=== PATIENT | female | born 1970 | race Caucasian/White ===

== ENCOUNTER 2016-12-28 06:12 | Inpatient (IN) | payer OTHER ==
[~2016-12-28 06:12] MED LIST: Buffered Lidocaine 0.9% SYRIN* 5 ML/SYR SYRINGE INTRADERM ONE; Sodium Citrate/Citric Acid* 15 ML UDC PO ONE
[2016-12-28] MEDS ORDERED: Sodium Citrate/Citric Acid* 15 ML UDC ONE (06:26)
[2016-12-28] MEDS ORDERED: Heparin VIAL(*) 5000 UNITS/ML VIAL (FIVE THOUSAND) ONE (06:26)
[2016-12-28] MEDS ORDERED: Ciprofloxacin 400MG IVPREMIX(* 400 MG/200 ML BAG ONE (06:27)
[2016-12-28] MEDS ORDERED: Clindamycin 900 MG IVPREMIX(* 900 MG/50 ML SDV IV ONE (06:27)
[2016-12-28] MEDS ORDERED: Buffered Lidocaine 0.9% SYRIN* 5 ML/SYR SYRINGE ONE (06:31)
[2016-12-28] MEDS ORDERED: Bupivacaine 0.5% SDV PF* 30 ML VIAL ONE (07:16)
[2016-12-28] MEDS ORDERED: Propofol* 10 MG/ML 20 ML BTL IV PUSH ONE (07:29)
[2016-12-28] MEDS ORDERED: Lidocaine 2% PF * 5 ML VIAL ONE (07:29)
[2016-12-28] MEDS ORDERED: fentaNYL* 50 MCG/ML 2 ML VIAL (100 MCG VIAL) ONE ×2 (07:29→09:58)
[2016-12-28] MEDS ORDERED: Rocuronium* 10 MG/ML VIAL ONE (07:30)
[2016-12-28] MEDS ORDERED: EPHEDrine (Pressors)* 50 MG/ML VIAL ONE (07:31)
[2016-12-28] MEDS ORDERED: DiMENhydriNATE IV* 50 MG/ML VIAL IV PUSH PRN (07:39)
[2016-12-28] MEDS ORDERED: Ondansetron INJ* 2 MG/ML VIAL ONE (09:07)
[2016-12-28] MEDS ORDERED: Ketorolac INJ* 30 MG/ML 1 ML VIAL ONE (09:07)
[2016-12-28] MEDS ORDERED: Dexamethasone IV* 4 MG/ML 1 ML (4 MG) ONE (09:07)
[2016-12-28] MEDS ORDERED: Glycopyrrolate IV* 0.2 MG/ML 1 ML VIAL ONE (09:09)
[2016-12-28] MEDS ORDERED: Neostigmine Methylsulfate* 2 MG/2 ML SYRINGE ONE (09:09)
[2016-12-28] MEDS ORDERED: diPHENhydraMINE IV* 50 MG/ML 1 ml VIAL (BENADRYL) SLOW PUSH PRN (09:44)
[2016-12-28] MEDS ORDERED: Acetaminophen ADULT LIQ* 650 MG/20.3 ML UDC PO PRN (09:44)
[2016-12-28] MEDS ORDERED: HYDROmorphone INJ* 1 MG/ML CARPUJECT SYRINGE IV PRN (09:44)
[2016-12-28] MEDS ORDERED: Ondansetron INJ* 2 MG/ML VIAL IV PRN (09:44)
--- NOTE | 2016-12-28 09:44 | PN ---
Progress Note - Progress Note Date of Service: 12/28/16 Note: Brief Operative Note: Preop and Postop Dx: Morbid obesity Procedure: Laparoscopic sleeve gastectomy Anesthesia: GET Surgeon: Aristeo Asst: LEXA Jackson EBL: 100 ml Fluids: 1600 ml RL Drains: none Specimen: stomach Findings: dictated
[2016-12-28] MEDS ORDERED: DiMENhydriNATE IV* 50 MG/ML VIAL ONE (09:58)
[2016-12-28] MEDS: fentaNYL* 50 MCG/ML 2 ML VIAL (100 MCG VIAL) IV PRN ×2 (09:59→10:22)
[2016-12-28] MEDS: HYDROmorphone INJ* 1 MG/ML CARPUJECT SYRINGE IV PRN ×2 (11:45→16:57)
[2016-12-28] MEDS: Famotidine IV* 10 MG/ML 2 ML (20 mg) IV SCH (11:46)
[2016-12-28] MEDS: Ketorolac INJ* 30 MG/ML 1 ML VIAL IV PRN ×2 (13:59→22:15)
[2016-12-29] MEDS: Famotidine IV* 10 MG/ML 2 ML (20 mg) IV SCH ×3 (00:06→23:43)
[2016-12-29] MEDS: HYDROmorphone INJ* 1 MG/ML CARPUJECT SYRINGE IV PRN (03:56)
--- NOTE | 2016-12-29 06:38 | OP ---
CC: Roseann Rojas MD * DATE OF OPERATION: 12/28/16 - ROOM #353 DATE OF : 74 SURGEON: Pietro Alberts MD ELECTRONIC PREPRESS SYSTEM OPERATOR: LEXA Vogt ANESTHESIOLOGIST: Kvng Hall DO ANESTHESIA: General endotracheal. PRE-OP DIAGNOSIS: Morbid obesity. POST-OP DIAGNOSIS: Morbid obesity. OPERATIVE PROCEDURE: Laparoscopic sleeve gastrectomy. ESTIMATED BLOOD LOSS: 10 mL. IV FLUIDS: 1.6 L crystalloids. SPECIMEN: Portion of the stomach. DRAINS: None. COMPLICATIONS: None. COUNTS: Instrument, needle, and sponge counts were correct. DESCRIPTION OF PROCEDURE: The patient was brought to the operating room and placed on the table supine. Sequential compression devices were placed on both lower extremities and general anesthesia was administered. The patient was positioned and padded appropriately and administered appropriate intravenous antibiotics and then prepped and draped in usual sterile fashion. Time-out was performed. Local anesthetic was infiltrated into the skin and soft tissue prior to making each incision. Entry into the abdomen was through a left upper quadrant incision accommodating a 5-mm optical trocar. I was unable to obtain pneumoperitoneum, and rather than persist with this, the decision was made to use a Veress needle through a transumbilical approach, and pneumoperitoneum was achieved with this method to a pressure of 15 mmHg. Then, the 5-mm port was placed into the left upper quadrant and inspection to the underlying viscera revealed that there was a through-and- through injury to the transverse colon mesentery. The area was inspected after placing additional 12-mm trocars, one in the supraumbilical region, one in the right upper quadrant, and a 5-mm trocar in the left upper quadrant laterally. The transverse colon was retracted superiorly and there appeared to be no injury to the retroperitoneum. At this point, a Ciro liver retractor was placed percutaneously in the subxiphoid position and used to elevate the left lobe of the liver and the gastric anatomy was inspected and normal. The lesser curvature was measured 6 cm from the pylorus and at this point skeletonized with the LigaSure device, completely dividing the short gastric vessels up to the gastroesophageal junction and dividing lesser sac adhesions. After fully mobilizing the stomach , a sleeve gastrectomy was performed over a 40-Cam[place] bougie with sequential firings of the EndoGIA stapler with purple reinforced staple cartridges. The specimen was retrieved through the right upper quadrant incision. There was some bleeding noted from the cut edge of the omentum which was controlled with endoscopic clip placement. Irrigation was performed until clear. Ports removed under direct visualization, carbon dioxide was released. Ciro liver retractor had been removed as well and then the incisions were closed with the stapler. Dressings applied. The patient tolerated the procedure well. The patient was extubated and transferred to Recovery in stable condition. [id number]/[facility] #: [id number] [facility] O[facility] MEDICAL CENTEREliana
--- NOTE | 2016-12-29 07:59 | PN ---
Progress Note - Progress Note Date of Service: 12/29/16 SOAP: Subjective: Pain controlled. Some N but no V last pm. Feels generally well. No GERD. Objective: Vital Signs Temp 98.1 F 12/29/16 04:14 Pulse 79 12/29/16 04:14 Resp 16 12/29/16 04:56 BP 109/57 12/29/16 04:14 Pulse Ox 95 12/29/16 04:14 Gen: NAD Abd: ND; incis with dressings c/d/i; NT. Intake & Output 12/28/16 12/29/16 12/29/16 18:59 06:59 18:59 Intake Total 3736 1167 Output Total 350 500 Balance 3386 667 Intake: IV Fluids 3736 1167 CLINDAMYCIN 900MG 50 D5W 200ML, Cipro 400mg 200 LR 3486 1167 Oral 0 Output: Urine 350 500 Other: # Bowel Movements 0 Assessment: POD#1 s/p LSG. Doing well. Plan: Adv diet. PO meds. Home when tolerating adequate po (4-6oz/hr).
[2016-12-29] MEDS: Heparin VIAL(*) 5000 UNITS/ML VIAL (FIVE THOUSAND) SUBCUT SCH ×3 (08:14→21:30)
[2016-12-29] MEDS: Ketorolac INJ* 30 MG/ML 1 ML VIAL IV PRN (08:26)
[2016-12-29] MEDS: HYDROcodone/ACET. 7.5/325 LIQ* 15 ML UDC PO PRN ×2 (11:59→18:05)
[2016-12-29] MEDS: D5W 1/2 NS KCl 20 Meq 1000 ML* 1,000 ML IV SCH ×2 (12:03→19:15)
[2016-12-30] MEDS: HYDROcodone/ACET. 7.5/325 LIQ* 15 ML UDC PO PRN ×2 (00:04→07:33)
[2016-12-30] MEDS: D5W 1/2 NS KCl 20 Meq 1000 ML* 1,000 ML IV SCH (03:32)
[2016-12-30] MEDS: Heparin VIAL(*) 5000 UNITS/ML VIAL (FIVE THOUSAND) SUBCUT SCH (05:40)
[2016-12-30 07:31] VITALS: BP 148/90
--- NOTE | 2016-12-30 09:03 | PN ---
Progress Note - Progress Note Date of Service: 12/30/16 Note: S: patient seen last night. Was interested in going home but did not quite meet intake goals. She feels better that she stayed overnight. Much better this a.m. O: Vital Signs - 8 hr 12/30/16 12/30/16 12/30/16 02:04 04:13 07:28 Temperature 98.1 F 98.1 F Pulse Rate 79 59 Respiratory 18 18 18 Rate Blood Pressure 133/81 148/90 (mmHg) O2 Sat by Pulse 97 96 Oximetry 12/30/16 07:33 Temperature Pulse Rate Respiratory 16 Rate Blood Pressure (mmHg) O2 Sat by Pulse Oximetry Intake and Output Last 24 Hours 12/28/16 12/29/16 12/30/16 12/31/16 06:59 06:59 06:59 06:59 Intake Total 4903 4471 Output Total 850 4700 650 Balance 4053 -229 -650 Weight 216 lb Intake: IV Fluids 4903 3541 CLINDAMYCIN 900MG 50 D5W 1/2 NS 20 meq KCL 1885 D5W 200ML, Cipro 400mg 200 LR 4653 1656 Oral 0 930 Output: Urine 850 4700 650 Other: # Bowel Movements 0 Heart: reg Lungs: clear Abd: +BS; lap incisions ok; small to moderate ecchymosis, chasity L lateral incision where there is a bit of fullness/mass c/w small hematoma (maybe 5 cm nubia). A/P: ok for d/c s/p lap sleeve gastrectomy. Instructions reviewed.
--- NOTE | 2016-12-30 15:59 | DS ---
CC: Dr. Rojas * DATE OF ADMISSION: 12/28/2016. DATE OF DISCHARGE: 12/30/2016. ATTENDING SURGEON: Dr. Pietro Alberts * (LEXA Vogt dictating). HOSPITAL COURSE: Please refer to admission history and physical for admission details. The patient was taken the operating room on 12/28/2016 at which time she underwent laparoscopic sleeve gastrectomy with Dr. Alberts. Surgery and postoperative course have been unremarkable. She was considering discharge the evening of postoperative day one, but was still not quite meeting her fluid intake goal. Her intake, as of the morning of postoperative day two, is adequate. Urine output is excellent. PHYSICAL EXAMINATION: General: Well-nourished, obese female in no acute distress. She appears well and comfortable sitting up. Vital signs: Temperature 98.1, blood pressure ranging from 109 to 148/54 to 90, pulse 59, respirations 18, room air saturation 96 percent. Heart: Regular rate and rhythm. Lungs: Clear to auscultation. Abdomen: Some ecchymosis around incisions and Heparin sites, some firmness around the left lateral incision consistent with a small hematoma. The incisions themselves are otherwise clean with staple intact. Abdomen is otherwise soft and relatively nontender. IMPRESSION: Status post laparoscopic sleeve gastrectomy, doing well. PLAN: Home today. Instructions were reviewed regarding wound care, activity, and diet. She will continue to follow the bariatric dietary guidelines. Follow -up has been arranged through the [facility]. She will continue to hold her Hydrochlorothiazide for the present. LEXA VOGT [id number]/[facility] #: [id number] MTDD
== END 2016-12-30 10:30 | disposition home or self-care (01) | DRG 621 ==
LOC: AA 06:12 → SSU 11:07
PROVIDERS: ADMIT Surgery; ATTEND Surgery
PROC: 0DB64Z3 Excision of Stomach, Percutaneous Endoscopic Approach, Vertical (ICD-10-PCS; principal; 2016-12-28 07:45)
DX: E66.01 Morbid (severe) obesity due to excess calories (principal); I10 Essential (primary) hypertension; Z88.0 Allergy status to penicillin; E55.9 Vitamin D deficiency, unspecified; F41.9 Anxiety disorder, unspecified; M19.90 Unspecified osteoarthritis, unspecified site; Z82.49 Family history of ischemic heart disease and other diseases of the circulatory system; Z83.3 Family history of diabetes mellitus; Z82.61 Family history of arthritis; Z80.3 Family history of malignant neoplasm of breast; Z87.891 Personal history of nicotine dependence; Z68.41 Body mass index [BMI] 40.0-44.9, adult
CPT/HCPCS: 43775; 88307; 94760; A9270-GY; J0744; J1100; J1170; J1240; J1644; J1885; J2405; J2704; J3010